=== PATIENT | female | born 1930 | race Caucasian/White ===

== ENCOUNTER 2016-11-28 10:14 | Outpatient (CLI) | payer MEDICARE ==
[2016-11-28] MEDS ORDERED: IOPAMIDOL-300 50 ML VIAL PO ONE (12:45)
[2016-11-28] MEDS ORDERED: IOPAMIDOL-300 100 ML VIAL IVP ONE (12:45)
== END 2016-11-28 10:15 | disposition home or self-care (01) ==
DX: C25.9 Malignant neoplasm of pancreas, unspecified (principal)
CPT/HCPCS: 74160; Q9967

== ENCOUNTER 2017-03-28 21:44 | Inpatient (IN) | payer MEDICARE ==
--- NOTE | 2017-03-28 22:33 | XRAY Preliminary Report ---
Exam: XR Chest 1 View IMPRESSION: 1. Mild cardiomegaly. 2. No evidence of consolidation or pneumothorax. 3. Right Port-A-Cath tip terminates in the low SVC. [facility] SITE ID: [id number]
--- NOTE | 2017-03-28 22:35 | XRAY Report ---
EXAM: CHEST RADIOGRAPHY EXAM DATE: 03/28/2017 10:20 PM. CLINICAL HISTORY: Fever. COMPARISON: 02/26/2017. TECHNIQUE: 1 view. FINDINGS: Lungs/Pleura: No focal opacities evident. No pleural effusion. No pneumothorax. Mediastinum: There is mild cardiomegaly. Other: Right Port-A-Cath tip terminates in the low SVC. IMPRESSION: 1. Mild cardiomegaly. 2. No evidence of consolidation or pneumothorax. 3. Right Port-A-Cath tip terminates in the low SVC. [facility] Referring Provider Line: [phone] SITE ID: [id number]
--- NOTE | 2017-03-28 23:21 | ED Physician Documentation ---
PD HPI FEVER - Stated complaint Stated Complaint: FEVER - Chief complaint Chief Complaint: Fever - History obtained from History obtained from: Patient, Family - History of Present Illness Timing - onset: Today Timing details: Gradual onset, Still present Associated symptoms: Chills, Rigors Contributing factors: No: Sick contact, Travel Recently seen: Not recently seen - Additional information Additional information: Patient is an 87 year old female with a history of pancreatic not currently on chemotherapy who is presenting to the emergency department for chills and fevers. Patient and state that today patient had fevers up to 102 and had episodes of rigors. Patient states that she has been feeling chills throughout the day. patient denies any cough, shortness of breath, headaches, abdominal pain, or dysuria. patient does have an in dwelling catheter. Review of Systems Constitutional: reports: Fever, Chills. denies: Myalgias Eyes: denies: Decreased vision, Photophobia Ears: denies: Ear pain, Drainage/discharge, Tinnitus/ringing, Foreign body Nose: denies: Rhinorrhea / runny nose, Congestion Throat: denies: Sore throat Cardiac: denies: Chest pain / pressure Respiratory: denies: Cough GI: denies: Abdominal Pain, Nausea, Vomiting : denies: Dysuria, Frequency, Hesitancy Skin: denies: Rash, Lesions Neurologic: denies: Generalized weakness, Focal weakness, Numbness, Difficulty speaking Immunocompromised: denies: Immunocompromised PD PAST MEDICAL HISTORY - Past Medical History Cardiovascular: None Respiratory: None Neuro: None Endocrine/Autoimmune: None GI: None : None HEENT: Macular degeneration, Chronic hearing loss Psych: None Musculoskeletal: None Derm: None - Past Surgical History General: Cholecystectomy, 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, Hysterectomy - Present Medications Home Medications: Ambulatory Orders Medication Instructions Recorded Confirmed Aspirin [Aspir-Low] 81 mg PO DAILY 06/01/15 03/11/17 Calcium Carbonate [Calcium] 500 mg PO DAILY 06/01/15 03/11/17 Cholecalciferol (Vitamin D3) 1,000 units PO DAILY 06/01/15 03/11/17 [Vitamin D] Multivitamin [Multivitamins] 1 tab PO DAILY 06/01/15 03/11/17 [place]-3 Fatty Acids [Fish Oil] 1 g PO DAILY 06/01/15 03/11/17 Potassium Chloride 40 meq PO DAILY 05/21/16 03/11/17 Lipase/Protease/Amylase [Pedro [place] 2 each PO TIDWM MDD 5 DOSES 06/18/16 03/11/17 6,000 Units Capsule] Ferrous Sulfate [Feosol] 325 mg PO BIDWM tablet 08/06/16 03/11/17 Multivitamin W/Minerals [Theragran 1 tab PO DAILYWM tablet 08/06/16 03/11/17 M] Lipase/Protease/Amylase [Pedro [place] 2 cap PO AC MDD see nurse note 12/04/16 6,000 Units Capsule] - Allergies Allergies/Adverse Reactions: Allergies Allergy/AdvReac Type Severity Reaction Status Date / Time dicyclomine Allergy Itching Verified 03/19/16 10:59 Penicillins Allergy Anaphylaxis Verified 03/19/16 10:57 - Social History Does the pt smoke?: No Smoking Status: Former smoker Does the pt drink ETOH?: No Does the pt have substance abuse?: No - POLST Patient has POLST: No PD ED PE NORMAL - Vitals Vital signs reviewed: Yes (rectal temp febrile) - General General: Alert and oriented X 3, Well developed/nourished - HEENT HEENT: Atraumatic, PERRL - Neck Neck: Supple, no meningeal sign, No bony TTP - Cardiac Cardiac: No murmur, No rub - Respiratory Respiratory: No respiratory distress, Clear bilaterally - Abdomen Abdomen: Soft, Non tender, Non distended - Derm Derm: Normal color, Warm and dry, No rash - Psych Psych: Normal mood, Normal affect PD ED PE EXPANDED - HEENT HEENT: Dry mucous membranes - Cardiac Cardiac: Other (port in right superior chest) - Respiratory Respiratory: Clear to ausultation roselyn. No: Distress, Labored, Stridor, Accessory mm use Results - Vitals Vitals: Vital Signs - 24 hr 03/28/17 03/29/17 03/29/17 21:53 00:05 00:45 Temperature 37.6 C H 37.2 C 38.3 C H Heart Rate 81 75 Respiratory 25 H 16 Rate Blood Pressure 155/55 H 119/54 L O2 Saturation 96 95 Oxygen O2 Source Room air - Labs Labs: Laboratory Tests 03/28/17 03/28/17 03/28/17 23:40 23:55 23:55 WBC 8.7 RBC 3.64 L Hgb 11.0 L Hct 33.2 L MCV 91.1 MCH 30.3 MCHC 33.3 RDW 14.4 Plt Count 119 L MPV 7.4 L Neut # Not Reportable Lymph # Not Reportable [place] # Not Reportable Eos # Not Reportable Baso # Not Reportable Absolute Nucleated RBC Not Reportable Total Counted 100 Band Neuts % (Manual) 5 Neutrophils # (Manual) 7.4 H Lymphocytes # (Manual) 0.7 L Monocytes # (Manual) 0.6 Nucleated RBCs Not Reportable Differential Comment MANUAL DIFFERENTIAL Platelet Estimate DECREASED (<130,000) RBC Morph Micro Appear NORMAL APPEARANCE Sodium 137 Potassium 3.9 Chloride 102 Carbon Dioxide 25 Anion Gap 10.0 BUN 22 H Creatinine 0.8 Estimated GFR (MDRD) 68 L Glucose 117 H Lactic Acid Calcium 9.0 Total Bilirubin 0.4 AST 82 H ALT 55 Alkaline Phosphatase 136 H Total Protein 6.5 L Albumin 3.7 Globulin 2.8 Albumin/Globulin Ratio 1.3 Lipase < 10 L Urine Color YELLOW Urine Clarity CLEAR Urine pH 5.5 Ur Specific [place] 1.020 Urine Protein NEGATIVE Urine Glucose (UA) NEGATIVE Urine Ketones NEGATIVE Urine Occult Blood NEGATIVE Urine Nitrite NEGATIVE Urine Bilirubin NEGATIVE Urine Urobilinogen 0.2 (NORMAL) Ur Leukocyte Esterase NEGATIVE Ur Microscopic Review NOT INDICATED Urine Culture Comments NOT INDICATED 03/28/17 23:55 WBC RBC Hgb Hct MCV MCH MCHC RDW Plt Count MPV Neut # Lymph # [place] # Eos # Baso # Absolute Nucleated RBC Total Counted Band Neuts % (Manual) Neutrophils # (Manual) Lymphocytes # (Manual) Monocytes # (Manual) Nucleated RBCs Differential Comment Platelet Estimate RBC Morph Micro Appear Sodium Potassium Chloride Carbon Dioxide Anion Gap BUN Creatinine Estimated GFR (MDRD) Glucose Lactic Acid 1.4 Calcium Total Bilirubin AST ALT Alkaline Phosphatase Total Protein Albumin Globulin Albumin/Globulin Ratio Lipase Urine Color Urine Clarity Urine pH Ur Specific [place] Urine Protein Urine Glucose (UA) Urine Ketones Urine Occult Blood Urine Nitrite Urine Bilirubin Urine Urobilinogen Ur Leukocyte Esterase Ur Microscopic Review Urine Culture Comments - Rads (name of study) chest x-ray Radiology: Final report received (no infiltrate or consolidation) PD MEDICAL DECISION MAKING - ED course Complexity details: reviewed old records, reviewed results, re-evaluated patient , considered differential, d/w patient, d/w family, d/w reporting consultant ED course: Patient was seen and examined at bedside. labs were drawn. chest x-ray was ordered and was within normal limits. rectal temperature was taken and was found to be positive at 38 degrees. Patient was treated with tylenol and vancomycin. due to the fear of the infection being due to the indwelling line patient was admitted to the hospitalist for further evaluation and care. Departure - Departure Disposition: [address] [facility] DC/Dheeraj Clinical Impression: Febrile disorder Condition: Stable
[2017-03-28] MEDS ORDERED: SODIUM CHLORIDE FLUSH 0.9% 10 ML SYRINGE IVP ONE (23:34)
[2017-03-29 00:13] LABS: BASOPHILS % (AUTO) 0.1 %; EOSINOPHILS % (AUTO) 0.1 %; HCT - HEMATOCRIT 33.2 % (37.0-47.0); LYMPHOCYTES % (AUTO) 3.8 %; MEAN CORPUSCULAR HEMOGLOBIN 30.3 pg (27.0-31.0); MEAN CORPUSCULAR HGB CONC 33.3 g/dL (32.0-36.0); MEAN CORPUSCULAR VOLUME 91.1 fL (81.0-99.0); MEAN PLATELET VOLUME 7.4 fL (7.9-10.8); MONOCYTES % (AUTO) 3.5 %; NEUTROPHILS % (AUTO) 92.5 %; RED BLOOD COUNT 3.64 10^6/uL (4.20-5.40); RED CELL DISTRIBUTION WIDTH 14.4 % (12.0-15.0); UNCORRECTED WHITE BLOOD COUNT 8.7 x10^3/uL; WHITE BLOOD COUNT 8.7 x10^3/uL (4.8-10.8)
[2017-03-29 00:17] LABS: ALBUMIN/GLOBULIN RATIO 1.3 (1.0-2.2); BILIRUBIN,TOTAL 0.4 mg/dL (0.2-1.0); BUN - BLOOD UREA NITROGEN 22 mg/dL (6-20); CARBON DIOXIDE - CO2 25 mmol/L (21-32); CHLORIDE 102 mmol/L (101-111); CREATININE 0.8 mg/dL (0.4-1.0); GFR - MDRD 68 (>89); GLUCOSE 117 mg/dL (70-100); POTASSIUM 3.9 mmol/L (3.5-5.0); SODIUM 137 mmol/L (135-145); TOTAL PROTEIN 6.5 g/dL (6.7-8.2)
[2017-03-29 00:18] LABS: LIPASE < 10 U/L (22-51)
[2017-03-29 00:26] LABS: BILIRUBIN,URINE NEGATIVE (NEGATIVE); PH,URINE 5.5 PH (5.0-7.5)
[2017-03-29 00:27] LABS: UA CHARGE (STRIP ONLY) YES; UR CULTURE IF IND NOT INDICATED
[2017-03-29 00:33] LABS: BAND NEUTROPHILS % (MANUAL) 5 %; LYMPHOCYTES % (MANUAL) 8 %; NEUTROPHILS % (MANUAL) 80 %; NP AUTO DIFFERENTIAL? YES; NP MAN DIFFERENTIAL? NO; PLATELET ESTIMATE, MANUAL DECREASED (<130,000) (NORMAL); TOTAL CELLS COUNTED 100
[2017-03-29] MEDS ORDERED: VANCOMYCIN INJ 1 GM in SODIUM CHLORIDE 0.9% 250 ML IV STA (00:51)
[2017-03-29] MEDS ORDERED: VANCOMYCIN 1 GM VIAL ONE (01:13)
[2017-03-29] MEDS ORDERED: ACETAMINOPHEN 325 MG TABLET PO STA (01:45)
[2017-03-29] MEDS ORDERED: ACETAMINOPHEN 325 MG TABLET PO ONE (02:19)
[2017-03-29] MEDS ORDERED: ACETAMINOPHEN 325 MG TABLET PO PRN (03:06)
[2017-03-29] MEDS ORDERED: PROCHLORPERAZINE 10 MG/2 ML VIAL IVP PRN (03:06)
[2017-03-29] MEDS ORDERED: SODIUM CHLORIDE FLUSH 0.9% 10 ML SYRINGE IVP PRN (03:06)
--- NOTE | 2017-03-29 03:42 | HISTORY & PHYSICAL EXAMINATION ---
DATE OF ADMISSION: 03/29/2017 PRIMARY CARE PROVIDER: Ana Johnson MD. ADMITTING PROVIDER: Dulce Aguila MD. CHIEF COMPLAINT: Fevers and chills. HISTORY OF PRESENT ILLNESS: She is an exceedingly pleasant 87-year-old female who has stage II pancre atic cancer. It was diagnosed in 04/2016 at the head of the pancreas and she had 4 doses of Gemzar/Ab raxane at 75% dosing, followed by 4 doses of 50% dosing. She has had chemoradiation, which was comple royal in 09/2016. Jaundice due to biliary tract obstruction was treated with a stent placement in 04/07 16. She did develop pancytopenia from chemotherapy, which responded to dose reduction and growth fact or support. She has been in good health over the summer. She eats frequent small meals to avoid epigastric abdomi nal pain, is tired, but overall staying well. She has had no antecedent history of fevers, chills. Cecilia valdez has a chronic runny nose ever since she has had the chemotherapy. She does not have any sinus pain, teeth pain, ear pain or sore throat. She denies coughing, wheezing, chest congestion. She has no abd ominal pain other than the epigastric pain and has no urgency, frequency, dysuria. No joint swelling, skin infections. She has been noted to have cellulitis and was hospitalized in 06/2016 and 07/2016, but has had no further recurrence of that. Today, she developed fever and chills. Had gotten all the way up to 102 with an episode of rigors, so her decided to bring her in. Initially she was mildly tachypneic at 25 and she was afebrile at 37.6. However, when Dr. Rome did a rectal temperature, she was 38.3. He has given her empiric antibiotic therapy with cefepime and vancomycin and respirations have come down to 16, and O2 satura tion remains 95-96% on room air. She is now admitted for fever of unknown origin in a patient who has a Port-A-Cath and a stent in place for obstructive jaundice. PAST MEDICAL HISTORY 1. Hypertension. 2. Chronic leg edema. 3. G1, P1. 4. Status post partial hysterectomy then panhysterectomy. 5. Bilateral cataract surgeries. 6. Appendectomy. 7. Pancreatic cancer as above. ALLERGIES 1. PENICILLIN. 2. LIDOCAINE. 3. DICYCLOMINE. MEDICATIONS 1. Simvastatin. 2. Aspirin. 3. Vitamin D. SOCIAL HISTORY: She never smoked. She rarely drank. She is from [place], a Holocaust survivor. 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 She moved to [facility] in 1997 when she and her retired. She is to her first husb and. FAMILY HISTORY: Mom at age 91 of old age. Father from asbestos exposure at 57. She has no s iblings. Her children are healthy. REVIEW OF SYSTEMS GENERAL: Overall, she has lost 40-50 pounds because of her pancreatic cancer. She has fatigue, easy a norexia if she eats too much. No sweats. The fever started today. ENT: She denies any change in vision, difficulty seeing. She has headaches with Zofran. She does not have ear pain or sore throat. 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 She has no problems with swallowing. She has partial dentures. PULMONARY: She has no chronic lung problems. She denies coughing, wheezing, shortness of breath, ches t congestion. CARDIAC: She denies atrial fibrillation, heart attack, congestive heart failure. She has chronic leg edema. She denies orthopnea, chest pain. Edema is the same as it has always been. GASTROINTESTINAL: Epigastric pain if she eats too much food. Prefers to eat 6 small meals a day. She denies diarrhea, change in bowel habits, no blood in her stool. GENITOURINARY: Occasional urinary incontinence, but she denies urgency, frequency, dysuria, or flank pain. JOINTS: No pain. She says it is remarkable to her that at her age that she does not have more pain. T here are no effusions, no heat in any joint. SKIN: No new rashes, no new moles. PSYCHIATRIC: She has anxiety. She worries about the future. If she could just stay the way she is for the rest of her life, she would be very happy. 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 She is completely alert. says she has no problems w ith mentation or memory. No focal deficits. No tremors, no falls. PHYSICAL EXAMINATION VITAL SIGNS: As already stated, her initial temperature was 37.6 orally, but with rectal checking she was 38.3. Blood pressure is 119/54, pulse is 75, respirations are 16 now after IV antibiotics, where they were 25. She is 95% on room air. GENERAL: She is a tiny, short stature, slender, elderly female with short hair and anxious faces. Quinton cueva is also anxiously at the bedside. HEAD AND NECK: Unremarkable. Pupils are reactive. Sclerae nonicteric. The back of her throat has no e xudate. Tympanic membranes normal. The neck is supple. There is no pain or swelling or tenderness of the nose. No goiter or bruits. LUNGS: Completely clear to auscultation and percussion without crackles, rhonchi, or wheezing. CARDIOVASCULAR: PMI is normally placed with regular rate and rhythm. In the upper anterior chest wall on the right side, she has a Port-A-Cath. The site appears clean. There is no warmth, fluctuance or tenderness. ABDOMEN: Soft, nontender, benign. No organomegaly. Normal bowel sounds. EXTREMITIES: Only trace edema around her ankles and calves. No clubbing, cyanosis, or edema. Her righ t biceps hurts. She says that that part of her arm has been aching for several months now, mainly at night and especially if she lies on it. She will wake up in the middle the night with sleep and have to turn to the other side to avoid pain and will use her left arm to rotate her right arm, but the ar m definitely feels that the biceps head is firmer, leaner and longer than the left deltoid head. Ther e is no pinpoint pain. She does have 1 large varicosity over the skin of the biceps. NEUROLOGIC: She is alert and oriented to person, place and time. Follows 2-step commands, has no foca l deficits. Normal reflexes. LABORATORY: Sodium 137, potassium 3.9, BUN 22, creatinine 0.8. Random glucose 117, lactic acid 1.4, A ST is 82. It is up from 40, which was in February. AST is 55, which is up from 35 in February. Alkaline phosp hatase is 136, which is up from February of 103. Total bilirubin is stable at 0.4. White cell count is do ubled her usual white cell count. In February, she was 4. Today, she is 8.7. Hemoglobin 11, hematocrit 33 , and those numbers are stable. Platelet is 119 and chronically low. The lowest she has been is 90 in 07/2016 and then 78 in 05/2016. Today's chest x-ray when compared to 02/2017 chest x-ray shows mild cardiomegaly, no evidence of cons olidation or pneumothorax, and Port-A-Cath terminates in the SVC. Urine today is completely clear, co mpletely normal. ASSESSMENT/PLAN 1. Fever of unknown origin. This is an elderly woman who is not neutropenic, but her white cell count is doubled from her usual baseline, and she has a fever and initially was tachypneic. Sources of inf ection between GI, , and pulmonary seem to be all negative on exam and history and evaluation. As s [facility], looking outside of those possibilities. She has not had any recent dental work. She has dentures , so I do not suspect endocarditis, and she has a murmur. She has a slightly bumped elevation of live r enzymes and alkaline phosphatase and the patient has a stent in for obstructive jaundice and has ep igastric pain any time she eats too many meals. Could she have mild pancreatitis. Other source of inf ection is a person who has a Port-A-Cath in place. It is usually flushed every month to 6 weeks. It h as not been used since September. Blood cultures have been done. If they become positive in the next 4 8 hours, would strongly recommend that the Port-A-Cath be removed. I have explained that to the patie nt and her . They are very anxious about this and it took multiple conversations and discussio ns in anatomy. 2. Right biceps pain in a patient who has a Port-A-Cath on the right side. Varicosity on the superfic ial surface of the skin. I am not seeing any thrombophlebitis, and the arm itself is not thick and sw ollen. Nevertheless, check ultrasound of the right upper extremity and make sure she does not have a small DVT. 3. Malignant neoplasm of the pancreas, stage II. Currently, without any ongoing therapy. Dr. Collier's notes reviewed. Next step would be either palliative chemotherapy or hospice care. She has already be en seen by Anastasiia Knight in consultation. Time will tell. 4. History of Port-A-Cath. Again, will remove if the blood cultures are positive. Current exam site i s negative. 5. History of hypertension. Blood pressure is currently stable. 6. Deep venous thrombosis prophylaxis with Lovenox. Platelets are already on the low side, but do not meet criteria of not taking Lovenox. 7. DO NOT RESUSCITATE status. JOB #: [id number] EXT JOB #:[id number]
[2017-03-29] MEDS ORDERED: VANCOMYCIN PER PHARMACY 1 GM in SODIUM CHLORIDE 0.9% 250 ML IV SCH (04:00)
[2017-03-29] MEDS: SODIUM CHLORIDE 0.9% 1,000 ML IV SCH ×2 (05:06→14:08)
[2017-03-29 05:24] LABS: BASOPHILS % (AUTO) 0.4 %; EOSINOPHILS % (AUTO) 0.3 %; HCT - HEMATOCRIT 33.7 % (37.0-47.0); HGB - HEMOGLOBIN 11.5 g/dL (12.0-16.0); LYMPHOCYTES # (AUTO) 0.5 10^3/uL (1.5-3.5); LYMPHOCYTES % (AUTO) 6.1 %; MEAN CORPUSCULAR HEMOGLOBIN 31.1 pg (27.0-31.0); MEAN CORPUSCULAR VOLUME 91.5 fL (81.0-99.0); MEAN PLATELET VOLUME 7.6 fL (7.9-10.8); MONOCYTES # (AUTO) 0.4 10^3/uL (0.0-1.0); MONOCYTES % (AUTO) 5.6 %; NEUTROPHILS # (AUTO) 6.6 10^3/uL (1.5-6.6); NEUTROPHILS % (AUTO) 87.6 %; RED BLOOD COUNT 3.69 10^6/uL (4.20-5.40); RED CELL DISTRIBUTION WIDTH 14.1 % (12.0-15.0); UNCORRECTED WHITE BLOOD COUNT 7.6 x10^3/uL; WHITE BLOOD COUNT 7.6 x10^3/uL (4.8-10.8)
[2017-03-29 05:37] LABS: ALBUMIN/GLOBULIN RATIO 1.1 (1.0-2.2); BILIRUBIN,TOTAL 1.1 mg/dL (0.2-1.0); CALCIUM 9.1 mg/dL (8.5-10.3); CREATININE 0.8 mg/dL (0.4-1.0); POTASSIUM 3.6 mmol/L (3.5-5.0); TOTAL PROTEIN 6.4 g/dL (6.7-8.2)
[2017-03-29] MEDS: SODIUM CHLORIDE FLUSH 0.9% 10 ML SYRINGE IVP SCH ×3 (06:09→21:21)
[2017-03-29] MEDS ORDERED: PROTEASE PO PRN (08:00)
[2017-03-29] MEDS ORDERED: LIPASE PO PRN (08:00)
[2017-03-29] MEDS ORDERED: AMYLASE PO PRN (08:00)
[2017-03-29] MEDS ORDERED: POTASSIUM CHLORIDE 10 MEQ CAPSULE PO SCH (09:00)
--- NOTE | 2017-03-29 09:10 | Ultrasound Preliminary Report ---
Exam: US Duplex Ext Veins Right IMPRESSION: No evidence for deep venous thrombosis. [facility] SITE ID: [id number]
[2017-03-29] MEDS: FERROUS SULFATE 325 MG TABLET PO SCH ×2 (09:22→17:16)
[2017-03-29] MEDS: CHOLECALCIFEROL 1,000 UNIT TABLET PO SCH (09:23)
[2017-03-29] MEDS: MULTIVITAMIN TABLET PO SCH (09:23)
[2017-03-29] MEDS: ASPIRIN EC 81 MG TABLET PO SCH (09:23)
[2017-03-29] MEDS: MULTIVITAMIN W/MINERALS TABLET PO SCH (09:23)
[2017-03-29] MEDS: CALCIUM CARBONATE CHEW 500 MG TABLET PO SCH (09:24)
--- NOTE | 2017-03-29 09:25 | Ultrasound Report ---
EXAM: RIGHT LOWER EXTREMITY VENOUS ULTRASOUND EXAM DATE: 03/29/2017 08:33 AM. CLINICAL HISTORY: Painful right biceps. COMPARISON: None. TECHNIQUE: Real-time sonographic vascular imaging was performed by the gas engine operator generators through the lower extremity utilizing both color-flow and Doppler spectral analysis. Multiple contact center representative static tao ges were saved for review. FINDINGS: Common Femoral Vein (CFV): Normal. CFV-GSV Junction: Normal. Profunda Femoral Vein (PFV): Normal. Femoral Vein (FV) Prox: Normal. Femoral Vein (FV) Mid: Normal. Femoral Vein (FV) Dist: Normal. Popliteal Vein: Normal. Posterior Tibial Veins: Normal. Peroneal Veins: Normal. Contralateral Side CFV: Normal. Other: None. IMPRESSION: No evidence for deep venous thrombosis. [facility] Referring Provider Line: [phone] SITE ID: [id number]
[2017-03-29] MEDS: POLYETHYLENE GLYCOL 3350 17 GM PACKET PO SCH (09:26)
[2017-03-29] MEDS: OMEGA-3 ACID ETHYL ESTERS 1 GM CAPSULE PO SCH (09:26)
[2017-03-29] MEDS: AMYLASE PO SCH ×3 (09:27→17:16)
[2017-03-29] MEDS: LIPASE PO SCH ×3 (09:27→17:16)
[2017-03-29] MEDS: PROTEASE PO SCH ×3 (09:27→17:16)
[2017-03-29] MEDS: ENOXAPARIN 40 MG/0.4 ML SYRINGE SUBQ SCH (09:29)
--- NOTE | 2017-03-29 14:27 | PROVIDER PROGRESS NOTE ---
Hospitalist Cross-cover Note - Cross-Cover Note Cross-Cover Note: Patient admitted early this morning for fever of unknown origin. She was seen and examined. She appears well. She is afebrile. She went for doppler ultrasound of her right upper extremity and that was negative for DVT. She does not appear to have any infection at the site of her port. We are awaiting results of blood cultures and examining her closely for any signs of sepsis. Patients CXR and UA were negative last night. Her WBC is improved from 8.7 to 7.6. She will be continued on vancomycin as we have high suspicion for possible blood stream infection from the patients port. If blood cx negative and patient does not have anymore fevers then she maybe able to go home tomorrow.
[2017-03-29] MEDS: SACCHAROMYCES BOULARDII 250 MG CAPSULE PO SCH (17:32)
[2017-03-30] MEDS ORDERED: VANCOMYCIN INJ 1 GM in SODIUM CHLORIDE 0.9% 250 ML IV SCH (02:00)
[2017-03-30] MEDS: SODIUM CHLORIDE FLUSH 0.9% 10 ML SYRINGE IVP SCH (05:29)
[2017-03-30 06:38] LABS: BASOPHILS % (AUTO) 0.3 %; EOSINOPHILS % (AUTO) 1.2 %; HCT - HEMATOCRIT 30.4 % (37.0-47.0); HGB - HEMOGLOBIN 10.2 g/dL (12.0-16.0); LYMPHOCYTES # (AUTO) 0.4 10^3/uL (1.5-3.5); LYMPHOCYTES % (AUTO) 11.3 %; MEAN CORPUSCULAR HEMOGLOBIN 30.7 pg (27.0-31.0); MEAN CORPUSCULAR HGB CONC 33.6 g/dL (32.0-36.0); MEAN CORPUSCULAR VOLUME 91.2 fL (81.0-99.0); MEAN PLATELET VOLUME 7.8 fL (7.9-10.8); MONOCYTES # (AUTO) 0.3 10^3/uL (0.0-1.0); MONOCYTES % (AUTO) 9.1 %; NEUTROPHILS # (AUTO) 2.7 10^3/uL (1.5-6.6); NEUTROPHILS % (AUTO) 78.1 %; NUCLEATED RED BLOOD CELLS AUTO 0.1 /100WBC; RED BLOOD COUNT 3.33 10^6/uL (4.20-5.40); RED CELL DISTRIBUTION WIDTH 14.2 % (12.0-15.0); UNCORRECTED WHITE BLOOD COUNT 3.5 x10^3/uL; WHITE BLOOD COUNT 3.5 x10^3/uL (4.8-10.8)
[2017-03-30 06:49] LABS: CALCIUM 8.7 mg/dL (8.5-10.3); CREATININE 0.8 mg/dL (0.4-1.0); POTASSIUM 3.1 mmol/L (3.5-5.0)
[2017-03-30 07:58] VITALS: BP 113/40
[2017-03-30] MEDS: SACCHAROMYCES BOULARDII 250 MG CAPSULE PO SCH (08:05)
[2017-03-30] MEDS: LIPASE PO SCH (08:06)
[2017-03-30] MEDS: FERROUS SULFATE 325 MG TABLET PO SCH (08:06)
[2017-03-30] MEDS: AMYLASE PO SCH (08:06)
[2017-03-30] MEDS: PROTEASE PO SCH (08:06)
[2017-03-30] MEDS: MULTIVITAMIN W/MINERALS TABLET PO SCH (08:17)
--- NOTE | 2017-03-30 08:58 | Discharge Plan ---
Discharge Plan Disposition: 01 Home, Self Care Condition: Stable Diet: Regular Activity Restrictions: No Restrictions Shower Restrictions: No Driving Restrictions: No Weight Bearing: Full Weight Additional Instructions or Follow Up instructions: You came to the ER with a fever and chills. You were given antibiotics and monitored overnight. You had no further fevers and all your tests including blood cultures were negative for a source of infection. You are well enough to go home You did have some diarrhea while you were here which we think was due to the antibiotics you were getting. If it continues once you return home please see your PCP. No Smoking: If you smoke, Please STOP! Call for help.
[2017-03-30] MEDS ORDERED: POTASSIUM CHLORIDE 20 MEQ TABLET PO ONE ×2 (09:00→12:00)
[2017-03-30] MEDS ORDERED: POTASSIUM CHLORIDE 20 MEQ TABLET PO SCH (09:00)
[2017-03-30] MEDS: ENOXAPARIN 40 MG/0.4 ML SYRINGE SUBQ SCH (09:03)
[2017-03-30] MEDS: POLYETHYLENE GLYCOL 3350 17 GM PACKET PO SCH (09:04)
--- NOTE | 2017-03-30 09:04 | DISCHARGE SUMMARY ---
Discharge Summary Admit Date: 03/29/17 Discharge Date: 03/30/17 Discharging Provider: aMtthias Lewis MD Primary Care Provider: Beverley Cantu Code Status: Do Not Attempt Resuscitation Condition at Discharge: Stable Discharge Disposition: 01 Home, Self Care - DIAGNOSES Admission Diagnoses: 1. Fever Unknown Origin 2. Right Biceps Pain 3. 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 History of Port-a-cath 5. Hypertension 6. DVT prophylaxis Discharge Diagnoses with Status of Each Condition: 1. Febrile Illness - Resolved 2. Diarrhea - Stable 3. Hypokalemia - Stable 4. Pancreatic Cancer Stage II 5. Hypertension 6. DVT prophylaxis - HPI History of Present Illness: Patient is a very pleasant 87-year-old female with a past medical history significant for stage II pancreatic cancer. He pancreatic cancer was diagnosed in 04/2016 at the head of the pancreas and she had 4 doses of Gemzar/Abraxne and 75% dosing, followed by 4 doses of 50% dosing. She has had chemoradiation, which was completed in 09/2016. Jaundice do to biliary tract obstruction was treated with a stent placement in 03/2016. She did develop pancytopenia from chemotherapy, which responded to dose reduction and growth factor support. She has been in good health over the summer. She eats frequently small meals to avoid epigastric abdominal pain, his tired, but overall staying well. She has had no antecedent history of fever, chills. She has a chronic runny nose ever since she had her chemotherapy. She does not have any sinus pain, teeth pain, ear pain or sore throat. She denies coughing. Wheezing. Chest congestion. She has no abdominal pain other than the epigastric pain and has no urgency, frequency, dysuria. No joint swelling, skin infections. She has been noted to have cellulitis and was hospitalized in 06/2016 and 07/2016, but has had no further recurrence of that. Today she has developed fever and chills. Her fever got all the way up to 102F with an episode of rigors. The patient's became worried and brought her into the emergency department. Initially on presentation to the emergency department the patient was mildly tachypneic with a respiratory rate of 25 and she was febrile with a temperature of 37.6. However when Dr. Rome to a rectal temperature her temperature was 38.3. The patient was given empiric antibiotics with cefepime and vancomycin and her respirations came down to 16 her O2 saturation remained between 95 and 96% on room air. She is now admitted for fever of unknown origin in a patient who has a Port-A-Cath and a stent placement for obstructive jaundice. Patient's chest x-ray and urinalysis were negative. - HOSPITAL COURSE Hospital Course: While hospitalized the patient did undergo a Doppler ultrasound of her right upper extremity as there was concern for possible DVT. The Doppler ultrasound of right upper extremity was negative for DVT. The patient had no further episodes of fever during the hospitalization. The patient did develop some diarrhea after being given antibiotics but was given a probiotic with which it settled down. The patient's potassium did drop to 3.1 her potassium was replaced. The patient's blood cultures were negative x1 day. The patient's WBC count returned back to her baseline. The patient had no further symptoms while she was hospitalized and was discharged home in stable condition. The patient will followup with her primary care physician if she has any further fevers or if her diarrhea continues. Our main concern was the patient could have had a infection of her Port-A-Cath however inspection did not reveal any skin or soft tissue infection around the Port-A-Cath and blood cultures were negative. - ALLERGIES Allergies/Adverse Reactions: Allergies Allergy/AdvReac Type Severity Reaction Status Date / Time dicyclomine Allergy Itching Verified 03/29/17 07:00 Penicillins Allergy Anaphylaxis Verified 03/29/17 07:00 - MEDICATIONS Home Medications: Ambulatory Orders Medication Instructions Recorded Confirmed Aspirin [Aspir-Low] 81 mg PO DAILY 06/01/15 03/29/17 Cholecalciferol (Vitamin D3) 1,000 units PO DAILY 06/01/15 03/29/17 [Vitamin D] Multivitamin [Multivitamins] 1 tab PO DAILY 06/01/15 03/29/17 [place]-3 Fatty Acids [Fish Oil] 1 g PO DAILY 06/01/15 03/29/17 Potassium Chloride 40 meq PO DAILY 05/21/16 03/29/17 Lipase/Protease/Amylase [Pedro Parisi 2 each PO TIDWM MDD 5 DOSES 06/18/16 03/29/17 6,000 Units Capsule] Multivitamin W/Minerals [Theragran 1 tab PO DAILYWM tablet 08/06/16 03/29/17 M] Lipase/Protease/Amylase [Pedro Parisi 1 cap PO AC MDD see nurse note 12/04/16 6,000 Units Capsule] Omeprazole/Sodium Bicarbonate 1 each PO DAILY 03/29/17 03/29/17 [Omeprazole-Bicarb 20-1,100 Cap] Simethicone [Gas Relief] 80 mg PO DAILY PM 03/29/17 03/29/17 - PHYSICAL EXAM AT DISCHARGE General Appearance: positive: No acute distress, Alert, Mild distress, Other ( Thin, elderly lady) Eyes Bilateral: positive: Normal inspection, PERRL, EOMI, No lid inflammation, Conjunctivae nml, No scleral icterus ENT: positive: ENT inspection nml, Pharynx nml, No signs of dehydration. negative: Purulent nasal drainage, Pharyngeal erythema, Oral lesions Neck: positive: Nml inspection, Thyroid nml, No JVD, Trachea midline. negative : Thyromegaly, Lymphadenopathy (R), Lymphadenopathy (L), Carotid bruit, Tracheal deviation Respiratory: positive: Chest non-tender, No respiratory distress, Breath sounds nml. negative: Wheezes, Rales, Rhonchi Cardiovascular: positive: Regular rate & rhythm, No murmur, No gallop Peripheral Pulses: positive: 2+ Abdomen: positive: Non-tender, No organomegaly, Nml bowel sounds, No distention. negative: Guarding, Rebound, Hepatomegaly Back: positive: Nml inspection. negative: CVA tenderness (R), CVA tenderness (L ) Skin: positive: Color nml, No rash, Warm. negative: Cyanosis, Pallor Extremities: positive: Non-tender, Full ROM, Nml appearance, No pedal edema Neurologic/Psychiatric: positive: Oriented x3, CN's nml (2-12), Motor nml, Sensation nml, Mood/affect nml - LABS Result Diagrams: 03/30/17 05:31 03/30/17 05:31 Other Lab Results: Laboratory Results WBC 3.5 x10^3/uL (4.8-10.8) L 03/30/17 05:31 RBC 3.33 10^6/uL (4.20-5.40) L 03/30/17 05:31 Hgb 10.2 g/dL (12.0-16.0) L 03/30/17 05:31 Hct 30.4 % (37.0-47.0) L 03/30/17 05:31 MCV 91.2 fL (81.0-99.0) 03/30/17 05:31 MCH 30.7 pg (27.0-31.0) 03/30/17 05:31 MCHC 33.6 g/dL (32.0-36.0) 03/30/17 05:31 RDW 14.2 % (12.0-15.0) 03/30/17 05:31 Plt Count 92 10^3/uL (130-450) L 03/30/17 05:31 MPV 7.8 fL (7.9-10.8) L 03/30/17 05:31 Neut # 2.7 10^3/uL (1.5-6.6) 03/30/17 05:31 Lymph # 0.4 10^3/uL (1.5-3.5) L 03/30/17 05:31 [place] # 0.3 10^3/uL (0.0-1.0) 03/30/17 05:31 Eos # 0.0 10^3/uL (0.0-0.7) 03/30/17 05:31 Baso # 0.0 10^3/uL (0.0-0.1) 03/30/17 05:31 Absolute Nucleated RBC 0.00 x10^3/uL 03/30/17 05:31 Total Counted 100 03/28/17 23:55 Band Neuts % (Manual) 5 % (0-10) 03/28/17 23:55 Neutrophils # (Manual) 7.4 10^3/uL (1.5-6.6) H 03/28/17 23:55 Lymphocytes # (Manual) 0.7 10^3/uL (1.5-3.5) L 03/28/17 23:55 Monocytes # (Manual) 0.6 10^3/uL (0.0-1.0) 03/28/17 23:55 Nucleated RBCs 0.1 /100WBC 03/30/17 05:31 Differential Comment MANUAL DIFFERENTIAL 03/28/17 23:55 Platelet Estimate DECREASED (<130,000) (NORMAL) 03/28/17 23:55 RBC Morph Micro Appear NORMAL APPEARANCE (NORMAL) 03/28/17 23:55 Sodium 141 mmol/L (135-145) 03/30/17 05:31 Potassium 3.1 mmol/L (3.5-5.0) L 03/30/17 05:31 Chloride 109 mmol/L (101-111) 03/30/17 05:31 Carbon Dioxide 25 mmol/L (21-32) 03/30/17 05:31 Anion Gap 7.0 (6-13) 03/30/17 05:31 BUN 13 mg/dL (6-20) 03/30/17 05:31 Creatinine 0.8 mg/dL (0.4-1.0) 03/30/17 05:31 Estimated GFR (MDRD) 68 (>89) L 03/30/17 05:31 Glucose 95 mg/dL (70-100) 03/30/17 05:31 Lactic Acid 1.4 mmol/L (0.5-2.2) 03/28/17 23:55 Calcium 8.7 mg/dL (8.5-10.3) 03/30/17 05:31 Total Bilirubin 1.1 mg/dL (0.2-1.0) H 03/29/17 05:05 AST 82 IU/L (10-42) H 03/29/17 05:05 ALT 60 IU/L (10-60) 03/29/17 05:05 Alkaline Phosphatase 141 IU/L (42-121) H 03/29/17 05:05 Total Protein 6.4 g/dL (6.7-8.2) L 03/29/17 05:05 Albumin 3.4 g/dL (3.2-5.5) 03/29/17 05:05 Globulin 3.0 g/dL (2.1-4.2) 03/29/17 05:05 Albumin/Globulin Ratio 1.1 (1.0-2.2) 03/29/17 05:05 Lipase 13 U/L (22-51) L 03/30/17 05:31 Urine Color YELLOW 03/28/17 23:40 Urine Clarity CLEAR (CLEAR) 03/28/17 23:40 Urine pH 5.5 PH (5.0-7.5) 03/28/17 23:40 Ur Specific [place] 1.020 (1.002-1.030) 03/28/17 23:40 Urine Protein NEGATIVE mg/dL (NEGATIVE) 03/28/17 23:40 Urine Glucose (UA) NEGATIVE mg/dL (NEGATIVE) 03/28/17 23:40 Urine Ketones NEGATIVE mg/dL (NEGATIVE) 03/28/17 23:40 Urine Occult Blood NEGATIVE (NEGATIVE) 03/28/17 23:40 Urine Nitrite NEGATIVE (NEGATIVE) 03/28/17 23:40 Urine Bilirubin NEGATIVE (NEGATIVE) 03/28/17 23:40 Urine Urobilinogen 0.2 (NORMAL) E.U./dL (NORMAL) 03/28/17 23:40 Ur Leukocyte Esterase NEGATIVE (NEGATIVE) 03/28/17 23:40 Ur Microscopic Review NOT INDICATED 03/28/17 23:40 Urine Culture Comments NOT INDICATED 03/28/17 23:40 - DIAGNOSTIC IMAGING Diagnostic Imaging Results: Final report reviewed Diagnostic Imaging Results Comments: Chest x-ray When compared to 02/2017 chest x-ray shows mild cardiomegaly, no evidence of consolidation or pneumothorax, and Port-A-Cath terminates in the SVC. - FOLLOW UP Follow Up: Patient is discharged home in stable condition after presenting with febrile illness. Patient had no further fevers she was treated with vancomycin and cefepime given that her blood cultures were negative and she did not show any signs or symptoms of infection throughout the remainder of the hospitalization she was not discharged on any antibiotics. The patient will followup with her primary care physician if she has any further symptoms. - TIME SPENT Time Spent in Discharge (Minutes): 35
[2017-03-30] MEDS: OMEGA-3 ACID ETHYL ESTERS 1 GM CAPSULE PO SCH (09:05)
[2017-03-30] MEDS: CALCIUM CARBONATE CHEW 500 MG TABLET PO SCH ×2 (09:05→09:09)
[2017-03-30] MEDS: CHOLECALCIFEROL 1,000 UNIT TABLET PO SCH (09:06)
[2017-03-30] MEDS: ASPIRIN EC 81 MG TABLET PO SCH (09:06)
[2017-03-30] MEDS: MULTIVITAMIN TABLET PO SCH (09:07)
== END 2017-03-30 10:00 | disposition home or self-care (01) | DRG 864 ==
LOC: ED 21:44 → MS3 03-29 03:06
PROVIDERS: ADMIT Specialist; ATTEND Internal Medicine
DX: R50.9 Fever, unspecified (principal); K83.1 Obstruction of bile duct; C25.0 Malignant neoplasm of head of pancreas; R19.7 Diarrhea, unspecified; E87.6 Hypokalemia; I10 Essential (primary) hypertension; M79.621 Pain in right upper arm; H35.30 Unspecified macular degeneration; H91.90 Unspecified hearing loss, unspecified ear; Z79.82 Long term (current) use of aspirin; Z79.899 Other long term (current) drug therapy; Z87.891 Personal history of nicotine dependence; Z92.3 Personal history of irradiation; Z92.21 Personal history of antineoplastic chemotherapy; Z66 Do not resuscitate
CPT/HCPCS: 36415; 71010; 80048; 80053; 81001; 81003; 83605; 83690; 85025; 87040; 87086; 96365; 99284; 99285

== ENCOUNTER 2017-04-15 12:30 | Outpatient (CLI) | payer MEDICARE ==
[2017-04-15 19:29] LABS: BASOPHILS % (AUTO) 0.3 %; EOSINOPHILS # (AUTO) 0.1 10^3/uL (0.0-0.7); EOSINOPHILS % (AUTO) 1.3 %; HCT - HEMATOCRIT 32.7 % (37.0-47.0); HGB - HEMOGLOBIN 10.9 g/dL (12.0-16.0); LYMPHOCYTES # (AUTO) 0.5 10^3/uL (1.5-3.5); MEAN CORPUSCULAR HEMOGLOBIN 30.7 pg (27.0-31.0); MEAN CORPUSCULAR HGB CONC 33.3 g/dL (32.0-36.0); MEAN CORPUSCULAR VOLUME 92.3 fL (81.0-99.0); MEAN PLATELET VOLUME 7.7 fL (7.9-10.8); MONOCYTES # (AUTO) 0.4 10^3/uL (0.0-1.0); MONOCYTES % (AUTO) 9.2 %; NEUTROPHILS % (AUTO) 76.2 %; NUCLEATED RED BLOOD CELLS AUTO 0.1 /100WBC; RED BLOOD COUNT 3.55 10^6/uL (4.20-5.40); RED CELL DISTRIBUTION WIDTH 15.2 % (12.0-15.0)
== END 2017-04-15 12:31 | disposition home or self-care (01) ==
LOC: LAB.WCP 12:30
PROVIDERS: ATTEND Family Medicine
DX: D61.818 Other pancytopenia (principal)
CPT/HCPCS: 36415; 85025

== ENCOUNTER 2017-11-12 14:30 | Outpatient (CLI) | payer MEDICARE ==
--- NOTE | 2017-11-12 19:30 | CONSULTATION NOTE ---
Palliative Care Follow Up - Referral Referring Provider: Dr. Collier Time of Visit: [id number] Referral setting: Home Referral Reason: Pancreatic Cancer/Abdominal Pain - Information Sources Records reviewed: Previous records reviewed History/Review of Systems obtained from: Patient, Family ( Aime present) Exam limitations: No limitations - History of Present Illness Update Brief HPI Update: This is a john 87-year-old woman who has had significant difficulties related to her pancreatic cancer over the last several months. She was originally diagnosed treated for stage II pancreatic cancer in the head of the pancreas, in April 2016 with chemotherapy, then received concurrent low-dose Xeloda and radiation for which she completed in 09/2016. She developed symptoms of gastric outlet obstruction, and severe pain in late fall 2016, she has a known biliary stent, originally thought it caused occlusion and possible migration, after several weeks patient is finally hospitalized, and received a gastrojejunostomy with jejunal feeding tube placed on 09/23/2017.She also during this time, had to have her port removed secondary to infection. She was in and out of the hospital at [facility], with rehab stays in between. 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 She does have a elevated CA 199, her oncologist will continue to watch, weighing benefits of burdens of moving forward on further treatment if indicated. She is now currently home, continues to struggle with severe abdominal pain with eating, remains resistant to any kind of opioid support, currently weighs 109 pounds. She is independent and ambulatory in her home, somewhat distressed by her being "tethered" to the tube feedings, is intermittently depressed and feeling overwhelmed, but grateful to be in her own home again. She is currently being supported by home health visiting nurses, she is due to see social work. Social History - Living Situation Living arrangement: At home Living Situation: With spouse/s.o. Support System: Have three children but not actively participatory in care; have not accessed much support outside of the two of them. She is a her Aime for 64 years, of note but often informs her desire to go forward, if she is a holocaust survivor.Has been remains very tearful, somewhat overwhelmed again by the tenuous situation they are in, he finds it very difficult and resistant to discussing her cancer status. Medications/Allergies - Medications Home Medications: Ambulatory Orders Medication Instructions Recorded Confirmed Lipase/Protease/Amylase [Pedro Parisi 1 cap PO AC MDD see nurse note 12/04/16 6,000 Units Capsule] Simethicone [Gas Relief] 80 mg PO PRN PRN 03/29/17 11/12/17 Ondansetron [Ondansetron Odt] 4 mg ORAL Q8HR PRN 07/03/17 11/12/17 Acetaminophen 500 mg PO Q4HR PRN MDD 3000 mg 11/12/17 11/12/17 Omeprazole 1 tab PO BID 11/14/17 11/14/17 - Allergies Allergies/Adverse Reactions: Allergies Allergy/AdvReac Type Severity Reaction Status Date / Time dicyclomine Allergy Itching Verified 06/14/17 06:46 Penicillins Allergy Anaphylaxis Verified 06/14/17 06:46 Review of Systems - Constitutional Constitutional: reports: Fatigue, Weakness, Poor appetite, Weight loss (109). denies: Fever, Chills - Eyes Eyes: reports: Vision loss, Corrective lenses - Ears, Nose & Throat Ears, Nose & Throat: reports: Hearing loss, Hearing aids, Dry mouth - Cardiovascular Cardiovascular: reports: Edema (wears support stockings), Decr. exercise tolerance - Respiratory Respiratory: denies: Cough - Gastrointestinal Gastrointestinal: reports: Abdominal pain, Diarrhea (soft and loose not watery) , Nausea (usually at night with feeding), Early satiety, Other (TF at 55 mls 730 pm-0930 am; Pepsin 1.5 danae/ml; 250 ml 3 cartons). denies: Reflux/heartburn - Genitourinary Genitourinary: reports: Frequency (up at night with night TF) - Musculoskeletal Musculoskeletal: reports: Muscle weakness - Neurological Neurological: reports: General weakness - Psychiatric Psychiatric: reports: Depression, Anxiety - Endocrine Endocrine: reports: Intolerance to cold - Hematologic/Lymphatic Hematologic/Lymphatic: reports: Anemia (receiving iron transfusions), Recurrent infections (recently infected portacath removed with sepsis) - All Other Systems All Other Systems: reports: Reviewed and negative Physical Exam - Vital Signs Temperature: 97.9 C Pulse Rate: 75 Respiratory Rate: 18 O2 Saturation: 96 (ra @ rest) Blood Pressure: 108/64 - Physical Exam General Appearance: positive: No acute distress, Anxious Eyes Bilateral: positive: Normal inspection ENT: positive: No signs of dehydration Neck: positive: No JVD, Trachea midline Cardiovascular: positive: Regular rate & rhythm Respiratory: positive: Breath sounds nml Abdomen: positive: Non-tender, Soft, Nml bowel sounds, Distended Skin: positive: Pallor, Dryness Extremities: positive: No pedal edema (has support stockings on) Neurologic/Psychiatric: positive: Oriented x3, Mood/affect nml, Weakness Palliative Care Pain: Location (Patient denies any pain at rest, her severe sharp shooting pain occurs after eating, within 15-20 minutes, she usually takes Tylenol 500 mg with some relief. She is quite resistant to any scheduled opioid or medications. She is able to take T and fluids without pain, it is only with solids and food. She does have some gas intermittently with the tube feedings, but no pain.) Sleep: Sleeps poorly (up frequently at night to urinate;disrupts both hers and Ramey sleep) Performance Status: Patient able to ambulate around the house without any support, she is independent in her ADLs. Aime is helping her manage the tube feedings. She does feel like she is getting stronger, but does need frequent naps. Would put her at a PPS of 60% - Palliative Care Discussion: Time spent today, was mostly reviewing her story over the last several months. She is quite grateful to be at home, feels like she is catching up with her sleep and feeling better. She is distressed that eating is not getting any better, we did discuss at length at this point in time focusing on quality of life, not "forcing herself", Aime does admit to being the driving force in this endeavor to get her "to eat". Patient able to say it is her cancer, her remains resistant to discuss anything "negative" about her or her cancer. Did not force the issue, time spent with building rapport and processing current feelings of depression and anxiety. Results - Lab Results Lab results reviewed: Yes Impression and Recommendations - Palliative Care Impression: This is an 87-year-old woman with pancreatic cancer, currently still an active surveillance, she continues with severe pain with eating, but now has nutritional support. She is slowly getting stronger, her functional status is improving, the challenges getting adequate calories and balance with quality of life issues, managing her pain, and addressing ongoing anxiety and distress. Palliative care to provide support, currently has home health care nursing support as well, will continue to work with coordination of care. Recommendations/Counseling Done: 1. Abdominal pain, most likely multifactorial in origin, but exacerbated by eating. Long discussion with patient and regarding quality of life issues, recommended to quit "forcing herself" to eat, she does tolerate tea and fluids, she does have a source of nutrition, would recommend focusing on increasing her calories through this means. Perceives 60 mils an hour was too uncomfortable, discussed just increasing one male every 24 hours to the point of tolerance. Also recommended afternoon feeding when patient is napping, and adding increased intake at the beginning or end of her feeding. Patient is somewhat resistant, she does not want to be "tethered". Did follow up with home health RN in conjunction with dietitian, will continue to encourage this strategy. Patient restarted carafate on discharge because had it at home, reviewed that was not given during last several months, is not an "ulcer", and left over from prior to hospitalization when trying to address pain issues, discontinued. 2. Pancreatic cancer. Patient is in surveillance, she does have elevated CA19 , scans appear stable currently, counseling to redirect, encouraged to enjoy her transition home, and find things that bring her pleasure and focus on current status and not into the "what ifs" of the future. 3. Caregiver fatigue. is easily tearful, continues to feel overwhelmed , remains resistant to accessing outside support. Is finding support of home health nursing very helpful, is to meet with medical palliative care drug abuse social worker this week as well. Patient requires support for tube feeding, has been becoming independent in this, but does impact both of their sleep, suspect this is adding to the distress 4. Advanced care planning. Will continue to work with them on goals of care, establishing rapport, and follow-up on documentation. Time Spent: 60 minutes with greater than 50% of this done in counseling, addressing pain and symptom management, goals of care and quality of life issues, as well as anticipatory guidance
== END 2017-11-12 14:31 | disposition home or self-care (01) ==
LOC: PC 14:30
PROVIDERS: ATTEND Nurse Practitioner Adult Health
DX: Z51.5 Encounter for palliative care (principal); R10.9 Unspecified abdominal pain; C25.0 Malignant neoplasm of head of pancreas; Z93.4 Other artificial openings of gastrointestinal tract status
CPT/HCPCS: 99350

== ENCOUNTER 2017-12-10 12:00 | Outpatient (CLI) | payer MEDICARE ==
--- NOTE | 2017-12-10 21:11 | CONSULTATION NOTE ---
Palliative Care Follow Up - Referral Referring Provider: Dr. Augustin Collier Time of Visit: [id number] Referral setting: Home Referral Reason: Pancreatic Cancer/GI Pain - Information Sources Records reviewed: RN notes reviewed, Previous records reviewed History/Review of Systems obtained from: Patient, Family ( Aime) Exam limitations: No limitations - History of Present Illness Update Brief HPI Update: This is a john 87-year-old woman who has significant difficulties related to pain, gastric distress, and ongoing challenges to meet caloric needs as result of her stage II pancreatic cancer since 04/2006 at the head of the pancreas. She has received chemotherapy as well as concurrent Xeloda and radiation, she was last treated in 09/2016. She has been on active surveillance [place] [id number]. Unfortunately she has had severe symptoms related to her gastric outlet obstruction and underwent surgery for a cholangiopancreatography, laparoscopy, gastrojejunostomy, and a jejunal tube feeding placed 09/23/2017. She has continued to suffer severe pain, gas, and depression related to this over the last several weeks to months. Instead of improving this is continued to worsen. Patient does have many barriers and objections to taking pain medication, but also sensitivities. Today I find her quite distressed and frustrated and feeling down, she feels quite tethered to her tube feedings, she has just a few hours off during the day. She has not been able to tolerate higher flow rate than 55 mils. Her weight is staying about 109 pounds. She has tried Gas-X, Tylenol, pain meds, Carafate continues with severe unrelenting pain that is exacerbated by eating and gas. She has not been eating by mouth for 2 or 3 weeks, is able to take T and water, but solid foods cause increased pain and cramping. It has been challenged to find a strategy, particularly since she is having such a difficult time tolerating the feeding as well. Social History - Living Situation Living arrangement: At home Living Situation: With spouse/s.o. (Patient has been quite isolated, they do have some friends that are willing to provide support but tend to not take advantage of this. Do have home health nursing following weekly, as well as medical palliative care social media assistant.) Medications/Allergies - Medications Home Medications: Ambulatory Orders Medication Instructions Recorded Confirmed Lipase/Protease/Amylase [Pedro Parisi 1 cap PO AC MDD see nurse note 12/04/16 6,000 Units Capsule] Simethicone [Gas Relief] 80 mg PO PRN PRN 03/29/17 12/10/17 Ondansetron [Ondansetron Odt] 4 mg ORAL Q8HR PRN 07/03/17 12/10/17 Acetaminophen 500 mg PO Q4HR PRN MDD 3000 mg 11/12/17 12/10/17 Omeprazole 1 tab PO BID 11/14/17 12/10/17 Oxycodone HCl/Acetaminophen 0.25 - 0.5 tab PO Q4HR PRN 12/10/17 12/10/17 [Oxycodone-Acetaminophen 5-325] Sucralfate [Carafate] 1 gm PO TID 12/10/17 12/10/17 - Allergies Allergies/Adverse Reactions: Allergies Allergy/AdvReac Type Severity Reaction Status Date / Time dicyclomine Allergy Itching Verified 06/14/17 06:46 Penicillins Allergy Anaphylaxis Verified 06/14/17 06:46 Review of Systems - Constitutional Constitutional: reports: Fatigue, Weakness, Weight loss (109) - Eyes Eyes: reports: Vision loss, Corrective lenses - Ears, Nose & Throat Ears, Nose & Throat: reports: Hearing loss, Hearing aids, Dry mouth - Cardiovascular Cardiovascular: reports: Decr. exercise tolerance - Respiratory Respiratory: reports: SOB with exertion. denies: SOB at rest - Gastrointestinal Gastrointestinal: reports: Abdominal pain, Abdominal distention, Constipation, Nausea, Reflux/heartburn, Poor appetite - Genitourinary Genitourinary: denies: Incontinence - Musculoskeletal Musculoskeletal: reports: Muscle weakness - Integumentary Integumentary: reports: Dryness - Neurological Neurological: reports: General weakness - Psychiatric Psychiatric: reports: Depression - All Other Systems All Other Systems: reports: Reviewed and negative Physical Exam - Vital Signs Temperature: 97.2 C Pulse Rate: 83 Respiratory Rate: 16 O2 Saturation: 95 (ra @ rest) Blood Pressure: 132/72 - Physical Exam General Appearance: positive: Moderate distress, Anxious Eyes Bilateral: positive: Normal inspection ENT: positive: No signs of dehydration Neck: positive: No JVD, Trachea midline Cardiovascular: positive: Regular rate & rhythm Respiratory: positive: Breath sounds nml, Diminished in bases Abdomen: positive: Abnml bowel sounds (hyperactive), Tenderness, Distended Skin: positive: Pallor, Dryness Extremities: positive: No pedal edema Neurologic/Psychiatric: positive: Oriented x3, Weakness, Depressed mood/affect, Flat affect Palliative Care Pain: Pain worsening, Location (abdominal severe 05/28 with "gas pressure"; stopped using daytime oxycodone 5/325 mg apap during the day as did not like drowsiness; is using it at night. Has not found any strategy that has worked; very discouraged and distressed) Tiredness/Fatigue: Severe (7-10) Drowsiness/Sedation: Moderate (4-6) Nausea: Moderate (4-6) Depression: Severe (7-10) Anxiety: Moderate (4-6) Dyspnea: Mild (1-3) Sleep: Variable sleep pattern (up with pain about 0300; and up to void;) Constipation: Yes, Opoid induced, Managed Feelings of wellbeing/Perceived Quality of Life: Poor, Worsening - Palliative Care Discussion: Just acknowledged patient's and 's frustration over the ongoing journey, her suffering and level of distress, and living in the unknown twilight zone. Has not been able to find a plan that is acceptable to her and or effective. remains quite tearful and overprotective, patient feels smothered and distressed. Counseling provided just to normalize loss and grief process currently experiencing, as well as to acknowledge the difficulty of their situation Results - Lab Results Lab results reviewed: Yes Lab and Imaging Results: CA-[id number] down from 11/05 [id number] Impression and Recommendations - Palliative Care Impression: This is an 87-year-old woman who has ongoing abdominal pain at her obstructive site, and able to tolerate any solids without significant distress, and continues to struggle with meeting her caloric needs. She is feeling somewhat overwhelmed and depressed regarding her current situation, tolerates opioids poorly, and does not appear to be tolerating feeding secondary to severe gas. Palliative care attempting to provide strategies to manage current pain and discomfort, provide psychosocial support, and anticipatory guidance Recommendations/Counseling Done: 1. Abdominal pain. Discussed multiple approaches, failed attempts, and strategies. Did agree to try 4 times a day Tylenol 500 mg with one quarter of it oxycodone 5 mg/325mg tab TID with 1/2 at bedtime/0300 am with gas-x; alternating with carafate. Counseling for strategy to not "kelli" pain, but try to take something on regular schedule. Written instructions provided. 2. Depression. Counseling to address issues of normalizing grief and loss issues , patient is not interested in further medications. Palliative Care Dowel Machine Operator scheduled to see patient this week. 3. Malnutrition. Patient unable to tolerate any oral intake, taking 3.5 cans with pump. Does not feel could tolerate oral supplement without pain. 4. Advanced care planning. Patient questioning current quality of life, is due to get MRI (awaiting okay on open because of anxiety). addendum: Did speak with Carol who is the dietitian, she thinks she might have disc doses, which is where that got bacteria is poor or may have overgrowth issues. Patient would not benefit from pancreatic enzymes, in fact would worsen her current condition. Did suggest elemental formula, she agreed to call Giuliana for me and discussed between the 2 of them some strategies. The downside is it is 1 danae per/ml formula versus a 1.5 Danae ml. Did suggest he continue his portable pump. Giuliana to call patient and off for the above. Time Spent: 65 minutes with greater than 50% of this done in counseling and coordination of care counseling regarding strategy to manage pain and discomfort.
== END 2017-12-10 12:01 | disposition home or self-care (01) ==
LOC: PC 12:00
PROVIDERS: ATTEND Nurse Practitioner Adult Health
DX: Z51.5 Encounter for palliative care (principal); R10.9 Unspecified abdominal pain; F32.9 Major depressive disorder, single episode, unspecified; E46 Unspecified protein-calorie malnutrition; K30 Functional dyspepsia; C25.9 Malignant neoplasm of pancreas, unspecified; Z93.1 Gastrostomy status; Z79.891 Long term (current) use of opiate analgesic
CPT/HCPCS: 99350

== ENCOUNTER 2017-12-30 11:45 | Outpatient (CLI) | payer MEDICARE ==
--- NOTE | 2017-12-30 14:48 | CONSULTATION NOTE ---
Palliative Care Follow Up - Referral Referring Provider: Dr. Augustin Collier Time of Visit: [id number] Referral setting: Home (patient is seen in her home setting, it is a considerable and taxing effort for her to leave the home) Referral Reason: Pancreatic Cancer / Pal Care - Information Sources Records reviewed: RN notes reviewed, Previous records reviewed History/Review of Systems obtained from: Patient, Family ( Aime present for visit) Exam limitations: No limitations - History of Present Illness Update Brief HPI Update: This is a john 87-year-old woman who has significant difficulties this is a john 87-year-old woman has significant challenges related to her stage II pancreatic cancer since 04/2016, at the head of the pancreas. He does have known gastric outlet obstruction status post endoscopic retrograde cholangiopancreatography, laparoscopic, gastrojejunostomy, and jejunal feeding tube placement on 09/23/2017. She has known pancreatic insufficiency, and now has significant postprandial abdominal pain. Is that she may have some concern for bacterial overgrowth, as most of her pain is gas related, and is most severe related to her feedings. She also has significant pain and distress with any kind of oral intake other than clear fluids. She is getting quite frustrated, and overwhelmed, with her ongoing pain, needing to be tethered to her tube feedings, her ongoing weight loss, and generalized overall weakness. Her latest MRI did not show much progression, but her CA 199 has continued to elevate. Patient herself is quite resistant to pain medication, she is on a total of oxycodone 15 mg in 24 hours, this is actually quite a large increase from her baseline 5-10 mg. She finds it quite sedating, she dislikes being altered, and indeed her pain seems to be induced with her feedings. Her had been instructed to try the continuous elemental formula, to see if she would tolerate this better, she does have less gas with it, but he is very fearful of her losing weight, so had put in and restarted some of the other feeding. Patient seen today to further define goals of care, had follow-up with Dr. Collier patient to confirm would be appropriate candidate for hospice, the patient 's goals continue to be focused on possible treatment in the future, but has come to some understanding by the end of our appointment what might be offered of support, she is having her tube replaced on , but both her and her are severely depressed with current situation but put up many barriers for moving forward on things that might be of benefit. Social History - Living Situation Living arrangement: At home Living Situation: With spouse/s.o. (They have been supported by home health RN, has been is feeling quite overwhelmed, they have been 62 years and finds it quite difficult to again consider losing her.) Medications/Allergies - Medications Home Medications: Ambulatory Orders Medication Instructions Recorded Confirmed Lipase/Protease/Amylase [Pedro Dr 1 cap PO .HOLD MDD see nurse note 12/04/16 6,000 Units Capsule] Simethicone [Gas Relief] 80 mg PO PRN PRN 03/29/17 12/30/17 Ondansetron [Ondansetron Odt] 4 mg ORAL Q8HR PRN 07/03/17 12/30/17 Acetaminophen 500 mg PO Q4HR PRN MDD 3000 mg 11/12/17 12/30/17 Omeprazole 1 tab PO BID 11/14/17 12/30/17 Oxycodone HCl/Acetaminophen 0.25 - 0.5 tab PO Q4HR PRN 12/10/17 12/30/17 [Oxycodone-Acetaminophen 5-325] Sucralfate [Carafate] 1 gm PO TID 12/10/17 12/30/17 Methadone 2.5 mg PO ACHS 12/30/17 12/30/17 - Allergies Allergies/Adverse Reactions: Allergies Allergy/AdvReac Type Severity Reaction Status Date / Time dicyclomine Allergy Itching Verified 06/14/17 06:46 Penicillins Allergy Anaphylaxis Verified 06/14/17 06:46 Review of Systems - Constitutional Constitutional: reports: Fatigue, Poor appetite, Weight loss (last weight 105) - Eyes Eyes: reports: Vision loss, Corrective lenses - Ears, Nose & Throat Ears, Nose & Throat: reports: Hearing loss, Hearing aids, Dry mouth - Cardiovascular Cardiovascular: reports: Decr. exercise tolerance - Respiratory Respiratory: reports: SOB with exertion. denies: Cough, SOB at rest - Gastrointestinal Gastrointestinal: reports: Abdominal pain (worse after eating), Poor appetite, Other (complains of feeling hungry on the elemental diet; taking tea/only by mouth sips all day). denies: Nausea - Musculoskeletal Musculoskeletal: reports: Muscle weakness - Integumentary Integumentary: reports: Dryness - Neurological Neurological: reports: General weakness - Psychiatric Psychiatric: reports: Depression, Anxiety - Hematologic/Lymphatic Hematologic/Lymphatic: reports: Anemia - All Other Systems All Other Systems: reports: Reviewed and negative Physical Exam - Physical Exam General Appearance: positive: Moderate distress, Anxious Eyes Bilateral: positive: Normal inspection ENT: positive: No signs of dehydration Neck: positive: No JVD, Trachea midline Cardiovascular: positive: Regular rate & rhythm Respiratory: positive: No respiratory distress Abdomen: positive: Soft, Tenderness, Distended Skin: positive: Pallor, Dryness Extremities: positive: No pedal edema Neurologic/Psychiatric: positive: Oriented x3, Weakness, Depressed mood/affect Palliative Care Pain: Pain worsening, Location Tiredness/Fatigue: Severe (7-10) Drowsiness/Sedation: Moderate (4-6) Nausea: Mild (1-3) Depression: Moderate (4-6) Anxiety: Moderate (4-6) Dyspnea: None Anorexia: Severe (7-10) Sleep: Variable sleep pattern Constipation: Yes, Opoid induced, Managed Performance Status: Patient does complain of overall weakness, but is still ambulatory without assistive devices. She likes to participate in household tasks, though these are quite fatiguing and she does have activity tolerance. She is able to attend to her own ADLs, her does assist with though with feeding and with oversight for medication management - Palliative Care Discussion: Patient reports feeling frustrated with her current quality of life, does not see this as "living". She remains quite resistant to changes, she is feeling exhausted with her pain and ongoing feeding issues. She very much wanted to explore what hospice was, we discussed hospice in the context of her prognosis of 6 months or less, Dr. Mai did feel like she was a candidate, but that the focus will be comfort. This would be no further palliative chemotherapy, and would focus on the here and now. We discussed the robustness of the team, particularly given Aime's need for ongoing support, she has outlived her known prognosis already, and does not feel at this moment she is ready to make that transition yet. We did discuss he would continue to revisit this every few weeks, will try some more aggressive pain management if she is willing to accept , but needs to follow advised. Conversation with Aime was focused on his need to let go of the calories, she is having weight loss, but more important she is having severe pain. To be able to address this we need to finish our trial with the elemental feedings, she is getting her tube replaced, and patient needs to be willing to take her pain medication. He was very focused on that he was told there is "no reason she should be having pain" in this day and age, we can control pain, we discussed multiple options but given patient's ongoing opioid night nativity, the fact she has been unwilling to take pain medication, she is not a candidate for fentanyl patch, but we could trial some methadone. Impression and Recommendations - Palliative Care Impression: This is an 87-year-old woman who has ongoing uncontrolled abdominal pain at her obstructive site, continued weight loss, high symptom burden of depression and anxiety, with known underlying pancreatic cancer. Palliative care providing support for pain and symptom management until transition to hospice. Recommendations/Counseling Done: 1.1. Abdominal pain. Patient continues to be resistant to maximizing opioid use, is currently at oxycodone 15 mg total, with half tab in the a.m., half tab at noon, 1 tab at bedtime, and 1 tab in the middle the night. Pain is mostly related to feedings, gas production, and intermittent in nature. In addition to agreeing to be adherent with the elemental feeding, will go ahead and initiate methadone half of a 5 mg tab to equal 2.5 mg at at bedtime. Discussed this will take several days to build up in her system, and will add slowly, balancing with sedation. Patient has been instructed to hold if patient having symptoms of sedation. Instructed to continue the oxycodone as needed, goal is to transition from oxycodone to methadone. Patient also disliking the splitting of the tablets of oxycodone, prescription for liquid oxycodone 5 mg per 5 mils provided. 2. Malnutrition. Patient is staying hydrated with her frequent sips of tea, she cannot tolerate any kind sweets, broth, Jell-O. Patient disliked the elemental feeding because she felt "hungry". In consult with Carol mullins dietitian , encouraged to take apple juice to see if the caloric intake would help decrease this feeling. Patient very frustrated at having to have continuous feeding, they do have a paty pack, encouraged to try and use this to ease her feeling of feeling tethered. 3. Depression. Patient is feeling quite overwhelmed and frustrated, continued to have high symptom burden, counseling regarding transitioning focus from calories and weight, to setting short goals that bring her more pleasure and comfort during the day. She does like birds, going for rides, and spending time with her . 4. Advanced care planning. Much time was spent discussing considering transitioning to hospice, patient continues to have many barriers related to this, did discuss with have a better layer of support, and more aggressively titrate medications, but focus would be comfort and not and further treatment. Patient to get to be placed on , will revisit again at our next visit next week. Home Health Time Spent: 75 minutes spent with counseling processing her current frustrations, depression , and high symptom burden area did area counselor regarding use of methadone, balancing pain and sedation, advanced care planning and hospice benefit and anticipatory guidance
== END 2017-12-30 11:46 | disposition home or self-care (01) ==
LOC: PC 11:45
PROVIDERS: ATTEND Nurse Practitioner Adult Health
DX: Z51.5 Encounter for palliative care (principal); G89.3 Neoplasm related pain (acute) (chronic); C25.0 Malignant neoplasm of head of pancreas; K86.89 Other specified diseases of pancreas; F43.21 Adjustment disorder with depressed mood; F41.9 Anxiety disorder, unspecified; E46 Unspecified protein-calorie malnutrition; Z93.4 Other artificial openings of gastrointestinal tract status; Z79.891 Long term (current) use of opiate analgesic; Z91.11 Patient's noncompliance with dietary regimen
CPT/HCPCS: 99350

== ENCOUNTER 2018-01-06 10:49 | Emergency (ER) | payer MEDICARE ==
[2018-01-06] MEDS ORDERED: SODIUM CHLORIDE 0.9% 1,000 ML IV ONE (11:20)
[2018-01-06] MEDS ORDERED: MORPHINE 2 MG/ML SYRINGE IVP STA (11:21)
--- NOTE | 2018-01-06 11:23 | ED Physician Documentation ---
PD HPI ABD PAIN - Stated complaint Stated Complaint: ABD PX - Chief complaint Chief Complaint: Abd Pain - History obtained from History obtained from: Patient, Family - History of Present Illness Timing - onset: How many days ago (4) Timing - details: Gradual onset Pain level max: 10 Pain level now: 10 Quality: Aching, Pain Location: All over / everywhere Radiation: Other (non-radiating) Improved by: Other (nothing) Worsened by: Other (nothing) Associated symptoms: Nausea, Constipation (no BM x 4 days). No: Fever, Vomiting , Hematemesis, Diarrhea, Melena, Hematochezia, Dysuria, Hematuria, Chest pain Recently seen: Other (J tube replaced 4 days ago in [place]. no BM since that time.) Review of Systems Ten Systems: 10 systems reviewed and negative Constitutional: denies: Fever, Chills Ears: denies: Ear pain Nose: denies: Rhinorrhea / runny nose, Congestion Throat: denies: Sore throat Cardiac: denies: Chest pain / pressure Respiratory: denies: Cough GI: reports: Abdominal Pain, Constipation (no BM x 4 days) : denies: Dysuria Skin: denies: Rash Musculoskeletal: denies: Neck pain, Back pain Neurologic: denies: Headache PD PAST MEDICAL HISTORY - Past Medical History Cardiovascular: None Respiratory: None Endocrine/Autoimmune: None GI: Other : None HEENT: Macular degeneration, Chronic hearing loss Psych: None Musculoskeletal: None Derm: None Other Past Medical History: Pancreatic cancer - Past Surgical History Past Surgical History: Yes General: Cholecystectomy, 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, Hysterectomy HEENT: Cataracts - Present Medications Home Medications: Ambulatory Orders Medication Instructions Recorded Confirmed Ondansetron [Ondansetron Odt] 4 mg ORAL Q8HR PRN 07/03/17 12/30/17 Acetaminophen 500 mg PO Q4HR PRN MDD 3000 mg 11/12/17 12/30/17 Omeprazole 1 tab PO BID 11/14/17 12/30/17 Sucralfate [Carafate] 1 gm PO TID 12/10/17 12/30/17 oxyCODONE [Roxicodone] 5 mg PRN 01/06/18 - Allergies Allergies/Adverse Reactions: Allergies Allergy/AdvReac Type Severity Reaction Status Date / Time dicyclomine Allergy Itching Verified 01/06/18 11:05 Penicillins Allergy Anaphylaxis Verified 01/06/18 11:05 - Social History Does the pt smoke?: No Smoking Status: Never smoker Does the pt drink ETOH?: No Does the pt have substance abuse?: No - Immunizations Immunizations are current?: Yes - POLST Patient has POLST: No PD ED PE NORMAL - Vitals Vital signs reviewed: Yes - General General: Alert and oriented X 3, No acute distress, Well developed/nourished - HEENT HEENT: Moist mucous membranes - Neck Neck: Supple, no meningeal sign - Cardiac Cardiac: RRR, Strong equal pulses - Respiratory Respiratory: No respiratory distress, Clear bilaterally - Abdomen Abdomen: Soft, Other (distended, diffuse TTP. no peritoneal signs. no signs of infection.) - Back Back: No spinal TTP - Derm Derm: Warm and dry, No rash - Extremities Extremities: No calf tenderness / cord - Neuro Neuro: Alert and oriented X 3 - Psych Psych: Normal mood, Normal affect Results - Vitals Vitals: Vital Signs - 24 hr 01/06/18 01/06/18 01/06/18 10:58 12:21 12:46 Temperature 37 C Heart Rate 79 66 51 L Respiratory 18 16 19 Rate Blood Pressure 134/60 H 134/60 H 136/51 H O2 Saturation 100 100 100 01/06/18 01/06/18 15:01 17:13 Temperature 37.7 C H Heart Rate 65 81 Respiratory 18 20 Rate Blood Pressure 134/64 H 120/57 L O2 Saturation 100 99 Oxygen O2 Source Room air - Labs Labs: Laboratory Tests 01/06/18 01/06/18 01/06/18 11:19 11:19 11:20 WBC 8.6 RBC 3.61 L Hgb 10.3 L Hct 30.9 L MCV 85.6 MCH 28.6 MCHC 33.5 RDW 17.2 H Plt Count 200 MPV 8.2 Neut # 7.2 H Lymph # 0.6 L Hart # 0.8 Eos # 0.0 Baso # 0.0 Absolute Nucleated RBC 0.00 Nucleated RBC % 0.0 PT 14.2 H INR 1.3 H Sodium 131 L Potassium 3.6 Chloride 94 L Carbon Dioxide 26 Anion Gap 11.0 BUN 19 Creatinine 0.4 Estimated GFR (MDRD) 152 Glucose 123 H Calcium 8.6 Total Bilirubin 1.1 H AST 47 H ALT 44 Alkaline Phosphatase 865 H Total Protein 6.7 Albumin 2.8 L Globulin 3.9 Albumin/Globulin Ratio 0.7 L Lipase 14 L - Rads (name of study) CT abd/pelvis Radiology: Prelim report reviewed, EMP read contemporaneously, See rad report ( Development of scattered bilateral pulmonary nodules in the lung bases, largest 7 mm in the right lower lobe. 2. Postsurgical changes as above, with a jejunostomy tube in expected position. 3. Pancreatic head mass, that is slightly decreased in size and has some fluid and gas likely related to central necrosis and treatment effect. 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 4. Borderline splenomegaly and some heterogeneity that could be related to small infarct. Likely related to splenic vein occlusion. 5. Pneumobilia, with some apparent debris within the stent. Correlate for obstruction with laboratory values. In the right hepatic lobe, a 1 cm hypodensity could be related to focal biliary duct dilatation or a metastasis. 6. New small volume ascites. ) PD MEDICAL DECISION MAKING - ED course Complexity details: reviewed old records, reviewed results, re-evaluated patient , considered differential, d/w patient, d/w family, d/w employee relations consultant ED course: Patient is an 87-year-old female with a history of pancreatic cancer, biliary stent and jejunostomy tube. The tracheostomy tube was replaced approximately 4 days ago and has had increased abdominal pain since that time. No bowel movement. She is found to have a likely occluded biliary stent with a rising alkaline phosphatase. Pain well controlled with morphine. She also has multiple scattered bilateral pulmonary nodules in the lung bases that is new from prior CT scan. 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 Also may have a small infarct in her spleen. Discussed the case with Dr. Collier, her oncologist who recommends transfer to [facility]. Discussed the case with Dr. Dennis ([id number]) ([facility]) and Dr. Patrick (hospitalist) at [facility] accepts in transfer ([phone]). Patient will be transferred to [facility]. This document was made in part using voice recognition software. While efforts are made to proofread this document, sound alike and grammatical errors may occur. Departure - Departure Disposition: 02 Transfer Acute Care Hosp Clinical Impression: Splenic vein thrombosis Occlusion of biliary anastomotic stent Qualifiers: Encounter type: initial encounter Qualified Code(s): T85.590A - Other mechanical complication of bile duct prosthesis, initial encounter Abdominal pain Qualifiers: Abdominal location: unspecified location Qualified Code(s): R10.9 - Unspecified abdominal pain Condition: Stable
[2018-01-06 11:28] LABS: BASOPHILS % (AUTO) 0.3 %; EOSINOPHILS % (AUTO) 0.3 %; HGB - HEMOGLOBIN 10.3 g/dL (12.0-16.0); LYMPHOCYTES # (AUTO) 0.6 10^3/uL (1.5-3.5); LYMPHOCYTES % (AUTO) 7.2 %; MEAN CORPUSCULAR HEMOGLOBIN 28.6 pg (27.0-31.0); MEAN CORPUSCULAR HGB CONC 33.5 g/dL (32.0-36.0); MEAN CORPUSCULAR VOLUME 85.6 fL (81.0-99.0); MEAN PLATELET VOLUME 8.2 fL (7.9-10.8); MONOCYTES # (AUTO) 0.8 10^3/uL (0.0-1.0); MONOCYTES % (AUTO) 9.2 %; NEUTROPHILS # (AUTO) 7.2 10^3/uL (1.5-6.6); PLT - PLATELET COUNT 200 10^3/uL (130-450); RED BLOOD COUNT 3.61 10^6/uL (4.20-5.40); RED CELL DISTRIBUTION WIDTH 17.2 % (12.0-15.0); WHITE BLOOD COUNT 8.6 x10^3/uL (4.8-10.8)
[2018-01-06 11:41] LABS: ALBUMIN 2.8 g/dL (3.2-5.5); ALBUMIN/GLOBULIN RATIO 0.7 (1.0-2.2); BILIRUBIN,TOTAL 1.1 mg/dL (0.2-1.0); CALCIUM 8.6 mg/dL (8.5-10.3); CREATININE 0.4 mg/dL (0.4-1.0); TOTAL PROTEIN 6.7 g/dL (6.7-8.2)
[2018-01-06] MEDS ORDERED: MORPHINE 10 MG/ML VIAL IVP STA ×3 (12:09→17:03)
[2018-01-06] MEDS ORDERED: IOPAMIDOL-300 100 ML VIAL ONE (12:17)
--- NOTE | 2018-01-06 13:13 | CT Preliminary Report ---
Exam: CT ABDOMEN/PELVIS W/ IMPRESSION: 1. Development of scattered bilateral pulmonary nodules in the lung bases, largest 7 mm in the right lower lobe. 2. Postsurgical changes as above, with a jejunostomy tube in expected position. 3. Pancreatic head mass, that is slightly decreased in size and has some fluid and gas likely related to central necrosis and treatment effect. 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 4. Borderline splenomegaly and some heterogeneity likely related to small infarct. Likely related to splenic vein occlusion. 5. Pneumobilia, with some apparent debris within the stent. Correlate for obstruction with laboratory values. In the right lobe, a 1 cm hypodensity could be related to focal biliary duct dilatation or a metastasis. 6. New small volume ascites. [facility] SITE ID: [id number]
--- NOTE | 2018-01-06 13:23 | CT Report ---
EXAM: CT ABDOMEN AND PELVIS EXAM DATE: 01/06/2018 12:43 PM. CLINICAL HISTORY: Abdominal pain status post J-tube replacement. COMPARISONS: 11/28/2016. TECHNIQUE: Routine helical CT imaging was performed through the abdomen and pelvis. IV contrast: 100 ML ISOVUE 300. Enteric contrast: No. Reconstructions: Coronal and sagittal. In accordance with CT protocol optimization, one or more of the following dose reduction techniques w ere utilized for this exam: automated exposure control, adjustment of mA and/or KV based on patient s ize, or use of iterative reconstructive technique. FINDINGS: Lung Bases: Interval development of bibasilar pulmonary nodules, largest in the right lower lobe isela ures up to 7 mm, image #10 of series #3. No effusions. Liver: Pneumobilia, increased caliber of biliary tree compared to the prior study. In the inferior ri ght lobe is a nearly 1 cm ill-defined hypodense lesion. Gallbladder/Bile Ducts: The common bile duct is distended, and there is a small amount of debris with in the stent and central biliary ducts. Status post cholecystectomy. Spleen: Some slight heterogeneity especially in the midportion with some capsular retraction, borderl ine splenomegaly measuring up to 13.2 cm. Pancreas: Atrophy, with 3.6 cm mass centered around the head of the pancreas, decreased from 4.4 cm o n the prior exam. There is some fluid and gas outside of the stent in the pancreatic head, likely rel ated to necrosis. Some thickening of the proximal duodenum adjacent to this region. Adrenal Glands: Normal. Kidneys: Normal. No masses or hydronephrosis. Peritoneal Cavity/Bowel: Anastomotic sutures at the stomach likely represent gastrojejunostomy. There is also a surgical J-tube which has been placed in the interim, in expected position. No drainable f luid collections. A small amount of ascites is present in the pelvis. Some borderline mesenteric lymp h node enlargement. Trace amount of perihepatic and perisplenic ascites. Appendix is not visualized. Pelvic Organs: Normal. The bladder and visualized pelvic organs are within normal limits. Vasculature: The superior mesenteric vein is now occluded just cephalad to the pancreas. The splenic vein is also occluded. Bones: Degenerative disk disease throughout the spine, with some areas of ankylosis, particularly at T12-L1. No acute bony abnormality. Other: None. IMPRESSION: 1. Development of scattered bilateral pulmonary nodules in the lung bases, largest 7 mm in the right lower lobe. 2. Postsurgical changes as above, with a jejunostomy tube in expected position. 3. Pancreatic head mass, that is slightly decreased in size and has some fluid and gas likely related to central necrosis and treatment effect. 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 4. Borderline splenomegaly and some heterogeneity that could be related to small infarct. Likely rela royal to splenic vein occlusion. 5. Pneumobilia, with some apparent debris within the stent. Correlate for obstruction with laboratory values. In the right hepatic lobe, a 1 cm hypodensity could be related to focal biliary duct dilatat ion or a metastasis. 6. New small volume ascites. [facility] Referring Provider Line: [phone] SITE ID: [id number]
[2018-01-06] MEDS ORDERED: ENOXAPARIN 60 MG/0.6 ML SYRINGE SUBQ STA (14:22)
[2018-01-06 15:19] LABS: INR 1.3 (0.8-1.2); PT - PROTHROMBIN TIME 14.2 secs (9.9-12.6)
[2018-01-06 17:14] VITALS: BP 120/57
[2018-01-06] MEDS ORDERED: IOPAMIDOL-300 100 ML VIAL IVP ONE (17:24)
== END 2018-01-06 17:37 | disposition short-term general hospital (02) ==
LOC: ED 10:49
DX: D73.5 Infarction of spleen (principal); I81 Portal vein thrombosis; T85.590A Other mechanical complication of bile duct prosthesis, initial encounter; Y83.8 Other surgical procedures as the cause of abnormal reaction of the patient, or of later complication, without mention of misadventure at the time of the procedure; C25.9 Malignant neoplasm of pancreas, unspecified; Z93.4 Other artificial openings of gastrointestinal tract status; R10.84 Generalized abdominal pain; R91.8 Other nonspecific abnormal finding of lung field
CPT/HCPCS: 36415; 74177; 80053; 83690; 85025; 85610; 96361; 96374; 96376; 99284; 99285; J1650; J2270; Q9967

== ENCOUNTER 2018-01-06 17:39 | Outpatient (CLI) | payer MEDICARE | END 2018-01-06 17:40 | disposition short-term general hospital (02) | LOC: EMS 17:39 | PROVIDERS: ATTEND Surgery | DX: R10.9 Unspecified abdominal pain (principal) | CPT/HCPCS: A0170; A0425; A0428 ==